=== PATIENT | male | born 1965 | race Two or more races ===

== ENCOUNTER 2017-11-02 08:58 | Day surgery (SDC) | payer OTHER ==
[2017-10-31 10:46] LABS: Basophils # (auto) 0.1 uL; Basophils % (auto) 0.8 % (0.0-2.0); Eosinophils # (auto) 0.6 uL; Eosinophils % (auto) 4.4 % (0.0-7.0); Hematocrit 51.4 % (41.0-53.0); Hemoglobin 17.4 g/dL (13.5-17.5); Lymphocytes # (auto) 2.8 uL; Lymphocytes % (auto) 20.2 % (10.0-50.0); Mean Corpuscular Hemoglobin 30.5 pg (28.0-32.0); Mean Corpuscular Hgb Conc. 33.8 g/dL (32.0-36.0); Mean Corpuscular Volume 90.4 fL (80.0-100.0); Monocytes # (auto) 1.1 uL; Monocytes % (auto) 7.6 % (0.0-12.0); Neutrophils # (auto) 9.2 uL; Nucleated Red Blood Cells % 0.2 %; Platelet Count (auto) 250 10^3/uL (140-450); Red Blood Cells 5.68 10^6/uL (4.5-5.90); Red Cell Distribution Width 13.6 % (11.8-14.3); White Blood Cell 13.8 10^3/uL (4.4-10.8)
[2017-10-31 10:53] LABS: Urine Bacteria NONE SEEN /hpf (None Seen); Urine Blood Negative /uL (Negative); Urine Mucus FEW (None Seen); Urine Specific Gravity 1.025 (1.001-1.035); Urine WBC <1 /hpf (0 - 3)
[2017-10-31 11:01] LABS: INR 0.95 (0.9-1.15); Partial Thromboplastin Time 27.1 sec (22.64-33.71); Prothrombin Time 10.3 sec (9.37-12.3)
[2017-10-31 12:44] LABS: Potassium 4.2 mmol/L (3.5-5.1)
[2017-10-31 12:46] LABS: Albumin 4.1 g/dL (3.4-5.0); Calcium 9.8 mg/dL (8.5-10.1)
[2017-10-31 12:52] LABS: Bilirubin, Total 0.4 mg/dL (0.2-1.0); Total Protein 8.1 g/dL (6.4-8.2)
[~2017-11-02] VITALS: Ht 172.7 cm; Wt 80.3 kg
[2017-11-02] MEDS ORDERED: ceFAZolin 1GM/50ML 50 ML IV ONE (09:36)
[2017-11-02] MEDS ORDERED: BUPIVACAINE 0.25% INJ 50ML VIAL ONE (11:36)
[2017-11-02] MEDS ORDERED: LIDOCAINE 1% HCL (LOCAL ANESTH.) INJ 20ML MDV ONE (11:36)
[2017-11-02] MEDS ORDERED: HYDROmorphone HCL 2 MG/ML VL IV PRN (12:45)
[2017-11-02] MEDS ORDERED: KETOROLAC TROMETH 30 MG/ML 1ML VIAL IV ONE (12:45)
[2017-11-02] MEDS ORDERED: METOCLOPRAMIDE HCL 5MG/ml INJ 2ml VIAL IV ONE (12:45)
[2017-11-02] MEDS ORDERED: ONDANSETRON HCL 4 MG/2 ML VIAL ONE (13:09)
[2017-11-02] MEDS ORDERED: SODIUM CHLORIDE LOCK 10 ML ONE (13:09)
[2017-11-02] MEDS ORDERED: MIDAZOLAM HCL 1MG/1ML-2 ML VIAL ONE (13:09)
[2017-11-02] MEDS ORDERED: PROPOFOL 10 MG/ML 20 ML IV ONE (13:09)
[2017-11-02] MEDS ORDERED: fentaNYL CITRATE 100 MCG/2 ML VL ONE (13:09)
[2017-11-02 13:58] VITALS: BP 133/83
== END 2017-11-02 14:23 | disposition home or self-care (01) ==
LOC: SUR 08:58
PROVIDERS: ATTEND Surgery
DX: K40.90 Unilateral inguinal hernia, without obstruction or gangrene, not specified as recurrent (principal); E66.01 Morbid (severe) obesity due to excess calories; Z68.26 Body mass index [BMI] 26.0-26.9, adult; F17.210 Nicotine dependence, cigarettes, uncomplicated; K21.9 Gastro-esophageal reflux disease without esophagitis; I10 Essential (primary) hypertension; J44.9 Chronic obstructive pulmonary disease, unspecified; D69.6 Thrombocytopenia, unspecified
CPT/HCPCS: 36415; 49505; 80053; 81001; 85025; 85610; 85730; J0690; J1885; J2001; J2250; J2405; J2704; J3010; J3490